=== PATIENT | female | born 1980 | race American Indian/Alaskan Native ===

== ENCOUNTER 2016-06-09 13:24 | Outpatient (CLI) | payer OTHER ==
--- NOTE | 2016-06-09 16:05 | Ultrasound Report ---
BILATERAL DIGITAL DIAGNOSTIC MAMMOGRAM with CAD and BILATERAL BREAST ULTRASOUND: 06/09/16 13:24:00 CLINICAL: Palpable right breast lump. COMPARISON:None. FINDINGS: The breasts are extremely dense which limits the sensitivity of mammography. No mammographic finding at the right outer palpable marker where the patient feels a lump.Bilateral inner circumscribed asymmetries on the CC views and left inferior circumscribed asymmetries persist on a spot CC view. Ultrasound of the right breast (including all four quadrants and the retroareolar area) was performed and too numerous to count benign cysts and no solid mass. The largest cyst is at 9 o'clock 3 cm from the nipple measuring 2.3 x 2.1 x 1.2 cm. It correlates with the palpable lump. A cyst at 9:30 o'clock 3 cm from nipple measures 1.2 x 0.5 x 1.0 cm. A cyst at 12 o'clock 2 cm from the nipple measures 8 x 3 x 6 mm. A cyst at 1 o'clock 2 cm from the nipple measures 9 x 8 x 5 mm. A cyst at 4 o'clock 3 cm from the nipple measures 5 x 4 x 5 mm and a cyst at 7:30 o'clock 2 cm from the nipple measures 1.4 x 0.3 x 1.1 cm. Ultrasound of the left breast (including all four quadrants and the retroareolar area) was performed and demonstrated three benign cysts and no solid mass. A septated cyst at 1 o'clock 3 cm from the nipple measures 0.7 x 0.3 x 0.8 cm. A cyst at 8 o'clock 4 cm from the nipple measures 0.8 x 0.3 x 0.9 cm and a cyst at 3 o'clock 3 cm from the nipple measures 0.3 x 0.3 x 0.4 cm. IMPRESSION: Bilateral benign cysts and no suspicious finding. BI-RADS CATEGORY: 2 - - Benign RECOMMENDATION: Clinical followup and routine mammographic screening based on ACS guidelines. ACR BI-RADS MAMMOGRAPHIC CODES: 0 = Needs additional imaging evaluation; 1 = Negative; 2 = Benign; 3 = Probably benign; 4 = Suspicious; 5 = Malignant; 6 = Known biopsy-proven malignancy COMMENT: 1. Dense breast tissue, i.e., adenosis, fibrocystic changes, etc., may obscure an underlying neoplasm. 2. Approximately 10% of cancers are not detected with mammography. 3. A negative mammography report should not delay biopsy if a clinically suspicious mass is present. COMMENT: Patient follow-up letters are generated by our [employer] application.
== END 2016-06-09 13:25 | disposition home or self-care (01) ==
LOC: SPVWC 13:24
PROVIDERS: ATTEND Family Medicine
DX: N60.01 Solitary cyst of right breast (principal); N60.02 Solitary cyst of left breast; N63 Unspecified lump in breast
CPT/HCPCS: 76641; G0204; 77066